=== PATIENT | female | born 1965 | race Caucasian/White ===

== ENCOUNTER → 2019-03-08 | Outpatient (CLI) | payer BC ==
--- NOTE | 2019-03-08 13:35 | XR ---
EXAMINATION TYPE: XR lumbosacral spine min 4V DATE OF EXAM: 03/08/2019 CLINICAL HISTORY: Low back pain on the right after strain injury TECHNIQUE: Frontal, lateral, and oblique images of the lumbar spine are obtained. COMPARISON: 11/30/2014 FINDINGS: There is a levoscoliosis of the lumbar spine as seen on the prior of 2014. There are 5 lum bar type vertebral bodies identified. The lumbar spine shows satisfactory alignment without evidence of acute fracture or dislocation. Vertebral body heights and disk space heights are within normal li mits. Multilevel facet arthropathy is seen resulting in minimal bilateral neural foraminal narrowing at L3-L4. No pars interarticularis defects are present. Multilevel small anterior osteophytes are no yohan in intervertebral disc space narrowing at L5-S1. IMPRESSION: No acute fracture or malalignment is seen in the lumbar spine. Mild multilevel degenerat levi disc disease creating mild neural foraminal narrowing radiographically at L3-L4 bilaterally. Marie lar levoscoliosis of the lumbar spine in comparison to 2015.
== END | disposition home or self-care (01) ==
LOC: RADXRYALE 12:54
PROVIDERS: ATTEND Internal Medicine
DX: M48.061 Spinal stenosis, lumbar region without neurogenic claudication (principal); M51.36 Other intervertebral disc degeneration, lumbar region; M41.86 Other forms of scoliosis, lumbar region
CPT/HCPCS: 72110

== ENCOUNTER → 2019-09-01 | Outpatient (CLI) | payer BC ==
--- NOTE | 2019-09-01 10:56 | XR ---
EXAMINATION TYPE: XR shoulder complete RT DATE OF EXAM: 09/01/2019 CLINICAL HISTORY: Increasing chronic shoulder pain. TECHNIQUE: Three views of the right shoulder are obtained. COMPARISON: None. FINDINGS: There is no acute fracture/dislocation evident in the right shoulder. Moderate narrowing a cromioclavicular joint. Type II downsloping acromion. Glenohumeral joint is maintained. Subchondral cystic change superolateral humeral head. The visualized ribs are intact and unremarkable. IMPRESSION: As above.
== END | disposition home or self-care (01) ==
LOC: RADXRYALE 10:38
PROVIDERS: ATTEND Internal Medicine
DX: M25.811 Other specified joint disorders, right shoulder (principal); M25.511 Pain in right shoulder

== ENCOUNTER → 2023-12-04 | Outpatient (CLI) | payer BC ==
[2023-12-05 03:01] LABS: ALT 22 U/L (8-44); AST 19 U/L (13-35); Albumin 4.9 g/dL (3.8-4.9); Albumin/Globulin Ratio 1.81 Ratio (1.60-3.17); Alkaline Phosphatase 91 U/L (41-126); BUN/Creat Ratio 20.57 Ratio (12.00-20.00); Blood Urea Nitrogen 14.4 mg/dL (9.0-27.0); Calcium 10.2 mg/dL (8.7-10.3); Carbon Dioxide 24.5 mmol/L (21.6-31.8); Chloride 104 mmol/L (96-109); Globulin 2.7 g/dL (1.6-3.3); Glucose 90 mg/dL (70-110); Phosphorus 3.1 mg/dL (2.4-5.1); Potassium 3.8 mmol/L (3.5-5.5); Sodium 142 mmol/L (135-145); Total Bilirubin 0.6 mg/dL (0.3-1.2); Total Protein 7.6 g/dL (6.2-8.2)
[2023-12-05 04:18] LABS: Appearance,Urine Clear (Clear); Bilirubin,Urine Negative (Negative); Blood,Urine Negative (Negative); Color,Urine Yellow (Yellow); Ketones,Urine Negative (Negative); Nitrite,Urine Negative (Negative); PH, Urine 5.5; Specific Gravity,Urine 1.011 (1.001-1.030); Urobilinogen,Urine 0.2 E.U./DL
[2023-12-05 04:47] LABS: Bacteria,Urine None Seen (None Seen); Calcium Oxalate Crystals,Urine Present (None Seen)
[2023-12-05 08:52] LABS: HCT 42.7 % (37.2-46.3); HGB 13.9 g/dL (12.0-15.0); MCH 29.1 pg (27.0-32.0); MCHC 32.6 g/dL (32.0-37.0); MCV 89.5 FL (80.0-97.0); Mean Platelet Volume 9.7 FL (9.5-12.2); NRBC Per 100 WBC 0 X 10*3/uL (0.00-0.01); Platelet Count 345 X 10*3/uL (140-440); RBC 4.77 X 10*6/uL (4.10-5.20); WBC 8.88 X 10*3/uL (4.50-10.00)
== END | disposition home or self-care (01) ==
LOC: LABWHC1 16:14
PROVIDERS: ATTEND Orthopaedic Surgery
DX: M75.31 Calcific tendinitis of right shoulder (principal)
CPT/HCPCS: 36415; 80053; 81001; 82306; 82310; 82652; 83970; 84100; 85027